=== PATIENT | female | born 1960 | race Caucasian/White ===

== ENCOUNTER 2017-03-12 08:21 | Day surgery (SDC) | payer OTHER ==
[~2017-03-12] VITALS: Ht 170.2 cm; Wt 89.4 kg
[~2017-03-12 08:21] MED LIST: ACHYD1T PO; EST45C VG; ESTR1TAB24 PO; IBP800T PO; KETO-22 PO
[2017-03-12] MEDS ORDERED: DEXL60CA (08:32)
[2017-03-12] MEDS ORDERED: NS IV 1000 ML 1,000 ML IV ONE (08:33)
[2017-03-12 08:55] LABS: BASOPHILS % (AUTO) 0 % (0-10); EOSINOPHILS % (AUTO) 0 % (0-10); LYMPHOCYTES # (AUTO) 1.2 X 10^3 (1.0-4.0); LYMPHOCYTES % (AUTO) 10 % (12-44); MEAN CORPUSCULAR HEMOGLOBIN 29 PG (25-34); MEAN CORPUSCULAR HGB CONC 33 G/DL (32-36); MEAN CORPUSCULAR VOLUME 90 FL (80-99); MEAN PLATELET VOLUME 10.3 FL (7.4-10.4); MONOCYTES # (AUTO) 0.7 X 10^3 (0.0-1.0); MONOCYTES % (AUTO) 6 % (0-12); NEUTROPHILS # (AUTO) 10.2 X 10^3 (1.8-7.8); NEUTROPHILS % (AUTO) 84 % (42-75); PLATELET COUNT 249 10^3/uL (130-400); RED BLOOD COUNT 4.52 10^6/uL (4.35-5.85); RED CELL DISTRIBUTION WIDTH 13.3 % (10.0-14.5); WHITE BLOOD COUNT 12.1 10^3/uL (4.3-11.0)
--- NOTE | 2017-03-12 09:06 | ED Abdominal Pain ---
General Chief Complaint: Abdominal/GI Problems Stated Complaint: APPENDIX PAIN Source of Information: Patient Exam Limitations: No Limitations History of Present Illness Time Seen By Provider: 08:42 Initial Comments Here with complaint of 2 days of central and lower abdominal pain that is now directed more towards the right lower quadrant. Admits to chills but did not check for fever. Denies dysuria but has had loose stools for a couple days now. Timing/Duration: 1-2 Days Severity/Quality: Moderate, Aching Location: Periumbilical Radiation: RLQ Activities at Onset: None Modifying Factors: Worsens With Movement Associated Symptoms: No Chest Pain, Fever/Chills, No Nausea/Vomiting, No Weakness Allergies and Home Medications Allergies Coded Allergies: No Known Drug Allergies (Unverified , 03/28/12) Home Medications Dexlansoprazole 60 Mg Cap., #30 (Reported) Estradiol 1 Mg Tablet, 1 MG PO DAILY, (Reported) Estrogens Conjugated 45 Gm Cr, 1 GM VG HS, (Reported) 1 APPLICATORFUL Ibuprofen 800 Mg Tab, 800 MG PO Q6H PRN, (Reported) Review of Systems Constitutional: see HPI, chills, No fever EENTM: No Symptoms Reported Respiratory: No Symptoms Reported Cardiovascular: No Symptoms Reported Gastrointestinal: See HPI, Abdominal Pain, Diarrhea, Denies Nausea, Denies Vomiting Genitourinary: No Symptoms Reported, Denies Frequency, Denies Pain Musculoskeletal: no symptoms reported Skin: no symptoms reported All Other Systems Reviewed Negative Unless Noted: Yes Past Skgzjog-Usfxux-Gtcofx Hx Patient Social History Alcohol Use: Denies Use Recreational Drug Use: No Smoking Status: Never a Smoker Recent Foreign Travel: No Contact w/Someone Who Travel: No Immunizations Up To Date Date of Influenza Vaccine: Sep 05, 2011 Surgeries HX Surgeries: Yes (BSO ) Surgeries: Hysterectomy, Orthopedic Respiratory Hx Respiratory Disorders: No Cardiovascular Hx Cardiac Disorders: No Neurological Hx Neurological Disorders: No Reproductive System Hx Reproductive Disorders: No Genitourinary Hx Genitourinary Disorders: Yes (INCONTINENCE) Gastrointestinal Hx Gastrointestinal Disorders: No Musculoskeletal Hx Musculoskeletal Disorders: Yes (LEFT HIP PROBLEMS) Endocrine Hx Endocrine Disorders: No HEENT HX ENT Disorders: No Psychosocial Hx Psychiatric Problems: No Blood Transfusions Hx Blood Disorders: No Reviewed Nursing Assessment Reviewed/Agree w Nursing PMH: Yes Family Medical History Significant Family History: No Pertinent Family Hx Physical Exam Vital Signs VS - Last 72 Hours, by Label 03/12/17 08:24 Temp 97.8 Pulse 77 Resp 18 B/P (MAP) 178/65 Pulse Ox 99 O2 Delivery Room Air Capillary Refill : General Appearance: WD/WN, no apparent distress HEENT: PERRL/EOMI, pharynx normal Neck: full range of motion, supple Respiratory: lungs clear, normal breath sounds Cardiovascular: regular rate, rhythm, no murmur Peripheral Pulses: 2+ Dorsalis Pedis (R), 2+ Left Dors-Pedis (L), 2+ Radial Pulses (R), 2+ Radial Pulses (L) Gastrointestinal: soft, No guarding, No rebound, tenderness (right lower quadrant until lesser extent suprapubic.) Extremities: non-tender, normal inspection Back: normal inspection, no CVA tenderness, no vertebral tenderness Neurologic/Psychiatric: alert, oriented x 3 Skin: normal color, warm/dry Progress/Results/Core Measures Results/Orders Lab Results Laboratory Tests Test 03/12/17 08:06 03/12/17 09:07 Range/Units White Blood Count 12.1 H 4.3-11.0 10^3/uL Red Blood Count 4.52 4.35-5.85 10^6/uL Hemoglobin 13.3 11.5-16.0 G/DL Hematocrit 41 35-52 % Mean Corpuscular Volume 90 80-99 FL Mean Corpuscular Hemoglobin 29 25-34 PG Mean Corpuscular Hemoglobin Concent 33 32-36 G/DL Red Cell Distribution Width 13.3 10.0-14.5 % Platelet Count 249 130-400 10^3/uL Mean Platelet Volume 10.3 7.4-10.4 FL Neutrophils (%) (Auto) 84 H 42-75 % Lymphocytes (%) (Auto) 10 L 12-44 % Monocytes (%) (Auto) 6 0-12 % Eosinophils (%) (Auto) 0 0-10 % Basophils (%) (Auto) 0 0-10 % Neutrophils # (Auto) 10.2 H 1.8-7.8 X 10^3 Lymphocytes # (Auto) 1.2 1.0-4.0 X 10^3 Monocytes # (Auto) 0.7 0.0-1.0 X 10^3 Eosinophils # (Auto) 0.0 0.0-0.3 10^3/uL Basophils # (Auto) 0.0 0.0-0.1 10^3/uL Sodium Level 139 135-145 MMOL/L Potassium Level 3.8 3.6-5.0 MMOL/L Chloride Level 104 98-107 MMOL/L Carbon Dioxide Level 23 21-32 MMOL/L Anion Gap 12 5-14 MMOL/L Blood Urea Nitrogen 9 7-18 MG/DL Creatinine 0.87 0.60-1.30 MG/DL Estimat Glomerular Filtration Rate > 60 BUN/Creatinine Ratio 10 Glucose Level 121 H 70-105 MG/DL Calcium Level 9.7 8.5-10.1 MG/DL Total Bilirubin 0.5 0.1-1.0 MG/DL Aspartate Amino Transf (AST/SGOT) 14 5-34 U/L Alanine Aminotransferase (ALT/SGPT) 15 0-55 U/L Alkaline Phosphatase 48 40-136 U/L Total Protein 6.9 6.4-8.2 G/DL Albumin 4.0 3.2-4.5 G/DL Urine Color YELLOW Urine Clarity CLEAR Urine pH 7 5-9 Urine Specific [place] 1.020 1.016-1.022 Urine Protein 2+ H NEGATIVE Urine Glucose (UA) NEGATIVE NEGATIVE Urine Ketones 1+ H NEGATIVE Urine Nitrite NEGATIVE NEGATIVE Urine Bilirubin NEGATIVE NEGATIVE Urine Urobilinogen NORMAL NORMAL MG/DL Urine Leukocyte Esterase 1+ H NEGATIVE Urine RBC (Auto) 1+ H NEGATIVE Urine RBC RARE /HPF Urine WBC RARE /HPF Urine Squamous Epithelial Cells RARE /HPF Urine Crystals NONE /LPF Urine Bacteria NEGATIVE /HPF Urine Casts NONE /LPF Urine Mucus SMALL H /LPF Urine Culture Indicated NO My Orders Orders - WILL TURNER MD Saline Lock/Iv-Start (03/12/17 08:33) Ns Iv 1000 Ml (Sodium Chloride 0.9%) (03/12/17 08:33) Cbc With Automated Diff (03/12/17 08:33) Comprehensive Metabolic Panel (03/12/17 08:33) Ua Culture If Indicated (03/12/17 08:33) Ct Abd/Pelv W (Appendicitis) (03/12/17 09:35) Iohexol Injection (Omnipaque 350 Mg/Ml 1 (03/12/17 09:45) Ns (Ivpb) (Sodium Chloride 0.9% Ivpb Bag (03/12/17 09:45) Fentanyl Injection (Sublimaze Injection (03/12/17 09:49) Medications Given in ED Current Medications Medications Dose Ordered Sig/Chad Route Start Time Stop Time Status Last Admin Dose Admin Iohexol 100 ml ONCE ONCE IV 03/12/17 09:45 03/12/17 09:46 DC 03/12/17 09:47 100 ML Sodium Chloride 100 ml ONCE ONCE IV 03/12/17 09:45 03/12/17 09:46 DC 03/12/17 09:48 80 ML Sodium Chloride 1,000 ml @ 0 mls/hr Q0M ONCE IV 03/12/17 08:33 03/12/17 08:36 DC 03/12/17 09:39 1,000 MLS/HR Vital Signs/I&O Vital Sign - Last 12Hours 03/12/17 08:24 Temp 97.8 Pulse 77 Resp 18 B/P (MAP) 178/65 Pulse Ox 99 O2 Delivery Room Air Progress Note : Progress Note Seen and evaluated. IV, labs, UA, normal saline 1 L bolus ordered. Patient declined pain medicine currently. CT abdomen and pelvis ordered. Fentanyl 50 g IV ordered for worsening pain after CT scan. 1042: Appendicitis noted. I did discuss the case with Dr. Pride. He'll take the patient to the OR. OR crew called. Findings and concerns discussed with the patient who agrees with plan. Diagnostic Imaging Diagonstic Imaging: CT Plain Films/CT/US/NM/MRI: abdomen, pelvis Comments NAME: SERA OCHOA [facility] REC#: [id number] PT STATUS: REG ER : 1960 PHYSICIAN: WILL TURNER MD ADMIT DATE: 03/12/17/ER Signed Date of Exam: 03/12/17 CT ABD/PELV W (APPENDICITIS) PROCEDURE: CT abdomen and pelvis with contrast, rule out appendicitis. TECHNIQUE: Multiple contiguous axial images were obtained through the abdomen and pelvis after the administration of intravenous contrast. INDICATION: Right lower quadrant pain Patient has bilateral breast implants. Lung bases are clear. Liver appears normal. Gallbladder is present. Common duct is not dilated. Portal vein is patent. Pancreas appears normal. Spleen is not enlarged. Kidneys and adrenals appear normal. Small bowel is not dilated. Colon is unremarkable. The appendix is distended. It measures 1 cm in diameter. There are some tiny phleboliths and air bubbles within the appendix. The appendiceal wall is not thickened. There is no surrounding induration. There is no intraperitoneal free air or free fluid. IMPRESSION: The appendix was distended and contains a small phleboliths but no definite evidence of acute appendicitis. Very early appendicitis cannot be excluded however. Dictated by: Dictated on workstation # [id number] Dict: 03/12/17 1006 Trans: 03/12/17 1015 Interpreted by: WILL COLEMAN Electronically signed by: WILL COLEMAN 03/12/17 1015 Reviewed: Reviewed by Me Departure Communication Time/Spoke to Admitting Phy: 10:42 Impression Impression: Primary Impression: Appendicitis Qualified Codes: K35.3 - Acute appendicitis with localized peritonitis Disposition: ADMITTED INPATIENT Condition: Stable Decision to Admit Reason: Admit from ER (General) Decision to Admit/Date: Mar 12, 2017 Time/Decision to Admit Time: 10:42 Departure-Patient Inst. Referrals: MARY LOU BARBOZA MD (PCP/Family) Primary Care Physician WILL TURNER MD Mar 12, 2017 09:06
[2017-03-12 09:14] LABS: BILIRUBIN,URINE NEGATIVE (NEGATIVE); KETONES,URINE 1+ (NEGATIVE); LEUKOCYTE ESTERASE ,URINE 1+ (NEGATIVE); NITRITE,URINE NEGATIVE (NEGATIVE); PH,URINE 7 (5-9); PROTEIN,URINE 2+ (NEGATIVE); UROBILINOGEN,URINE NORMAL (NORMAL)
[2017-03-12 09:15] LABS: ALANINE AMINOTRANSFERASE 15 U/L (0-55); ANION GAP 12 MMOL/L (5-14); ASPARTATE AMINO TRANSFERASE 14 U/L (5-34); BILIRUBIN,TOTAL 0.5 MG/DL (0.1-1.0); BLOOD UREA NITROGEN 9 MG/DL (7-18); BUN/CREATININE RATIO 10; CALCIUM 9.7 MG/DL (8.5-10.1); CARBON DIOXIDE 23 MMOL/L (21-32); CHLORIDE 104 MMOL/L (98-107); CREATININE SERUM 0.87 MG/DL (0.60-1.30); GFR ESTIMATED > 60; GLUCOSE 121 MG/DL (70-105); POTASSIUM 3.8 MMOL/L (3.6-5.0); SODIUM 139 MMOL/L (135-145); TOTAL PROTEIN 6.9 G/DL (6.4-8.2)
[2017-03-12 09:27] LABS: SQUAMOUS EPITHELIAL CELL,UR RARE /HPF; WBC,URINE RARE /HPF
[2017-03-12] MEDS ORDERED: IOHEXOL 350 MG/ML 100 ML (OMNIPAQUE 350) VIAL IV ONE (09:45)
[2017-03-12] MEDS ORDERED: NS 100 ML (IVPB) BAG IV ONE (09:45)
[2017-03-12] MEDS ORDERED: fentaNYL INJECTION 100 MCG/2 ML AMP IVP STA (09:49)
--- NOTE | 2017-03-12 10:15 | Diagnostic Imaging Report ---
PROCEDURE: CT abdomen and pelvis with contrast, rule out appendicitis. TECHNIQUE: Multiple contiguous axial images were obtained through the abdomen and pelvis after the administration of intravenous contrast. INDICATION: Right lower quadrant pain Patient has bilateral breast implants. Lung bases are clear. Liver appears normal. Gallbladder is present. Common duct is not dilated. Portal vein is patent. Pancreas appears normal. Spleen is not enlarged. Kidneys and adrenals appear normal. Small bowel is not dilated. Colon is unremarkable. The appendix is distended. It measures 1 cm in diameter. There are some tiny phleboliths and air bubbles within the appendix. The appendiceal wall is not thickened. There is no surrounding induration. There is no intraperitoneal free air or free fluid. IMPRESSION: The appendix was distended and contains a small phleboliths but no definite evidence of acute appendicitis. Very early appendicitis cannot be excluded however. Dictated by: Dictated on workstation # [id number]
[2017-03-12] MEDS ORDERED: metroNIDAZOLE 500MG/100ML IVPB IV ONE (11:15)
[2017-03-12] MEDS ORDERED: ceFAZolin 2 GM/50 ML NS 50 ML IV ONE (11:15)
--- NOTE | 2017-03-12 11:15 | History & Physical-Surgical ---
History of Present Illness History of Present Illness Reason for visit/HPI CC: RLQ abdominal pain Seen and evaluated in emergency dept. 57 year old female began having abdominal pain periumbilical which then migrated to the right lower quadrant. Pain moderate, no radiation. Has been going on about 48 hours. Patient maybe slight nausea no emesis. Denies fevers but felt chilled at time. She had a ct scan demonstrating dilated appendix and appendicolith. Nothing making symptoms better and movement or touching abdomen makes pain worse. Date of Admission I consulted on this patient on 03/12/17 11:10 Attending Physician Maura Pride DO Admitting Physician Dunia Duran MD Consult Allergies and Home Medications Allergies Coded Allergies: No Known Drug Allergies (Unverified , 03/28/12) Home Medications Dexlansoprazole 60 Mg Cap., #30 (Reported) Estradiol 1 Mg Tablet, 1 MG PO DAILY, (Reported) Estrogens Conjugated 45 Gm Cr, 1 GM VG HS, (Reported) 1 APPLICATORFUL Ibuprofen 800 Mg Tab, 800 MG PO Q6H PRN, (Reported) Past Kvzplqw-Yaysxy-Rwabxo Hx Patient Social History Alcohol Use: Denies Use Recreational Drug Use: No Smoking Status: Never a Smoker Recent Foreign Travel: No Contact w/Someone Who Travel: No Recent Infectious Disease Expo: No Immunizations Up To Date Date of Influenza Vaccine: Sep 05, 2011 Surgeries HX Surgeries: Yes (BSO ) Surgeries: Abdominal, Breast, Hysterectomy, Orthopedic Respiratory Hx Respiratory Disorders: No Cardiovascular Hx Cardiac Disorders: No Neurological Hx Neurological Disorders: No Reproductive System Hx Reproductive Disorders: No Genitourinary Hx Genitourinary Disorders: Yes (INCONTINENCE) Gastrointestinal Hx Gastrointestinal Disorders: No Musculoskeletal Hx Musculoskeletal Disorders: Yes (LEFT HIP PROBLEMS) Endocrine Hx Endocrine Disorders: No HEENT HX ENT Disorders: No Psychosocial Hx Psychiatric Problems: No Blood Transfusions Hx Blood Disorders: No Reviewed Nursing Assessment Reviewed/Agree w Nursing PMH: Yes Family Medical History Significant Family History: No Pertinent Family Hx Constitutional: see HPI EENTM: no symptoms reported Respiratory: no symptoms reported Cardiovascular: no symptoms reported Gastrointestinal: RLQ Genitourinary: no symptoms reported Musculoskeletal: no symptoms reported Skin: no symptoms reported Psychiatric/Neurological: No Symptoms Reported All Other Systems Reviewed Negative Unless Noted: Yes (Negative excepted noted.) Physical Exam Vital Signs Vital Sign - Last 12Hours 03/12/17 08:24 Temp 97.8 Pulse 77 Resp 18 B/P (MAP) 178/65 Pulse Ox 99 O2 Delivery Room Air Capillary Refill : Less Than 3 Seconds General Appearance: No Apparent Distress (laying in bed) HEENT: PERRL/EOMI, Pharynx Normal Neck: Supple Respiratory: No Accessory Muscle Use, No Respiratory Distress Cardiovascular: Regular Rate, Rhythm Gastrointestinal: Soft, No Distended, No Guarding, Tenderness (right lower quadrant) Rectal: Deferred Back: Normal Inspection Extremity: Normal Inspection Neurologic/Psychiatric: Alert, Oriented x3, Normal Mood/Affect Skin: Warm/Dry Data Review Labs Laboratory Tests 03/12/17 08:06: White Blood Count 12.1H, Red Blood Count 4.52, Hemoglobin 13.3, Hematocrit 41, Mean Corpuscular Volume 90, Mean Corpuscular Hemoglobin 29, Mean Corpuscular Hemoglobin Concent 33, Red Cell Distribution Width 13.3, Platelet Count 249, Mean Platelet Volume 10.3, Neutrophils (%) (Auto) 84H, Lymphocytes (%) (Auto) 10L, Monocytes (%) (Auto) 6, Eosinophils (%) (Auto) 0, Basophils (%) (Auto) 0, Neutrophils # (Auto) 10.2H, Lymphocytes # (Auto) 1.2, Monocytes # (Auto) 0.7, Eosinophils # (Auto) 0.0, Basophils # (Auto) 0.0, Sodium Level 139, Potassium Level 3.8, Chloride Level 104, Carbon Dioxide Level 23, Anion Gap 12, Blood Urea Nitrogen 9, Creatinine 0.87, Estimat Glomerular Filtration Rate > 60, BUN/ Creatinine Ratio 10, Glucose Level 121H, Calcium Level 9.7, Total Bilirubin 0.5 , Aspartate Amino Transf (AST/SGOT) 14, Alanine Aminotransferase (ALT/SGPT) 15, Alkaline Phosphatase 48, Total Protein 6.9, Albumin 4.0 03/12/17 09:07: Urine Color YELLOW, Urine Clarity CLEAR, Urine pH 7, Urine Specific [place] 1.020, Urine Protein 2+H, Urine Glucose (UA) NEGATIVE, Urine Ketones 1+H, Urine Nitrite NEGATIVE, Urine Bilirubin NEGATIVE, Urine Urobilinogen NORMAL, Urine Leukocyte Esterase 1+H, Urine RBC (Auto) 1+H, Urine RBC RARE, Urine WBC RARE, Urine Squamous Epithelial Cells RARE, Urine Crystals NONE, Urine Bacteria NEGATIVE, Urine Casts NONE, Urine Mucus SMALLH, Urine Culture Indicated NO Assessment/Plan Assessment/Plan Assessment/Plan right lower quadrant abdominal pain, appendicitis discussed ct scan findings and risks and benefits of laparoscopic appendectomy all other indicated procedures she and family understand and wish to proceed. patient to OR ancef/flagyl preop scd's iv fluids MAURA PRIDE DO Mar 12, 2017 11:15
[2017-03-12] MEDS ORDERED: proPOfol 200 MG/20 ML (DIPRIVAN) VIAL IV ONE (11:16)
[2017-03-12] MEDS ORDERED: LIDOCAINE PF 2% 10 ML (XYLOCAINE) AMP ONE (11:16)
[2017-03-12] MEDS ORDERED: SEVOFLURANE (ULTANE) 15 ML INHAL SOLN ONE ×4 (11:16→12:35)
[2017-03-12] MEDS ORDERED: fentaNYL INJECTION 100 MCG/2 ML AMP ONE ×2 (11:17→13:04)
[2017-03-12] MEDS ORDERED: BUPIVACAINE 0.5% 30 ML (SENSORCAINE) VIAL ONE (11:17)
[2017-03-12] MEDS ORDERED: LIDOCAINE 1% INJ 20 ML (XYLOCAINE) VIAL ONE (11:17)
[2017-03-12] MEDS ORDERED: MIDAZOLAM 2 MG/2 ML (VERSED) VIAL ONE (11:17)
[2017-03-12] MEDS ORDERED: SCOPOLAMINE 1.5 MG (TRANSDERM-SCOP) PATCH ONE (11:41)
[2017-03-12] MEDS: LACTATED RINGERS 1,000 ML IV SCH ×2 (11:42→13:19)
[2017-03-12] MEDS ORDERED: ceFAZolin 1,000 MG (ANCEF) VIAL ONE (11:56)
[2017-03-12] MEDS ORDERED: LACTATED RINGERS 2,000 ML IV ONE (12:35)
[2017-03-12] MEDS ORDERED: metroNIDAZOLE 500MG/100ML IVPB 100 ML ONE (12:38)
[2017-03-12] MEDS ORDERED: DEXAMETHASONE PF 10 MG/ML (DECADRON) VIAL ONE (12:38)
[2017-03-12] MEDS ORDERED: ONDANSETRON 4 MG/2 ML (SDV) Z0FRAN ONE ×2 (12:38→13:05)
[2017-03-12] MEDS ORDERED: NEOSTIGMINE (BLOXIVERZ ) 1 MG/1ML 10 ML VIAL ONE (12:39)
[2017-03-12] MEDS ORDERED: GLYCOPYRROLATE 0.2 MG/ML (ROBINUL) 2 ML VIAL ONE (12:39)
[2017-03-12] MEDS ORDERED: KETOROLAC 30 MG/ML VIAL ONE (12:39)
--- NOTE | 2017-03-12 12:57 | Progress Note-Post Operative ---
Post-Operative Progess Note Surgeon (s)/Mercerizer (s) Surgeon MAURA ESQUEDA DO Mercerizer: 0 Pre-Operative Diagnosis appendicitis Post-Operative Diagnosis same Post-Op Procedure Note Date of Procedure: Mar 12, 2017 Name of Procedure Performed: laparoscopic appendectomy Description of the Procedure: see note Findings of the Procedure see note Anesthesia Type general Estimated blood loss (mL): minimal Specimen(s) collected/removed appendix MAURA ESQUEDA DO Mar 12, 2017 12:57
[2017-03-12] MEDS ORDERED: HYDR-3812 PO (12:58)
[2017-03-12] MEDS ORDERED: DOCU-143 PO (12:58)
--- NOTE | 2017-03-12 13:01 | Discharge Inst-Simple/Standard ---
Discharge Inst-Standard Discharge Medications New, Converted or Re-Newed RX: RX on Chart Patient Instructions/Follow Up Plan of Care/Instructions/FU: 2 weeks Shannen Activity as Tolerated: No Discharge Diet: Liquid Diet (advance diet as tolerates) Other Inst to Patient Follow up Appt: Make appointment for 2 week. Instructions: No lifting greater than 10 pounds. No strenuous activity. May shower in 24 hours, no tub bath or soaking. Use incentive spirometer at home as directed. No Smoking Skin/Wound Care: May remove bandages in 24 hours. You need to leave the white strips over incision on they will fall off on their own. Symptoms to Report: Appetite Changes, Extremity Discoloration, Numbness/Tingling, Swelling Increased , Bleeding Excessive, Eyesight Changes, Pain Increased, Urine Color Change, Constipation(Persistent), Fever over 101 degree F, Pain/Pressure in chest, Urinating Difficulty, Cough Up/Vomit Blood, Heart Beat Irreg/Pounding, Pain/ Pressure in jaw, Vaginal Bleeding Increase, Cramps in feet or legs, Lightheadedness, Pain/Pressure in shoulder, Diarrhea(Persistent), Memory Changes Suddenly, Questions/Concerns, Weight gain consecutive days, Dizziness/ Fainting, Nausea/Vomiting, Shortness of Breath, Weight gain over 2 pounds If questions or concerns contact your physician Or seek help at emergency department. MAURA ESQUEDA DO Mar 12, 2017 13:01
[2017-03-12] MEDS ORDERED: morphine INJ 10 MG/ML 1ML (SYR OR VIAL) ONE (13:04)
[2017-03-12] MEDS ORDERED: LACTATED RINGERS 1,000 ML IV PRN (13:06)
[2017-03-12] MEDS ORDERED: fentaNYL INJECTION 100 MCG/2 ML AMP IVP PRN (13:15)
[2017-03-12] MEDS ORDERED: morphine INJ 10 MG/ML 1ML (SYR OR VIAL) IVP PRN (13:15)
[2017-03-12] MEDS ORDERED: MEPERIDINE (DEMEROL) INJ 50 MG/ML IVP PRN (13:15)
[2017-03-12] MEDS: HYDROcodone/APAP 5 MG/325 MG (LORTAB) TAB PO PRN ×2 (14:25→19:00)
[2017-03-12 19:20] VITALS: BP 140/80
--- NOTE | 2017-03-12 23:28 | OPERATIVE REPORT ---
DATE OF SERVICE: 03/12/2017 PREOPERATIVE DIAGNOSIS: Appendicitis. POSTOPERATIVE DIAGNOSIS: Appendicitis. PROCEDURE PERFORMED: Laparoscopic appendectomy. SURGEON: MAURA ESQUEDA DO ANESTHESIA: General. ESTIMATED BLOOD LOSS: Minimal. COMPLICATIONS: None. INDICATION: The patient is an 87-year-old female who presented with abdominal pain which began at the periumbilical region then moved to the right lower quadrant. She had a CT scan suggestive of an early appendicitis. She understands the risks and benefits of the procedure and wished to proceed with procedure. Consent was signed and on the chart. DESCRIPTION OF PROCEDURE: The patient was taken to the operating suite, she was prepped and draped in a sterile fashion. Surgical pause was performed. A 5 mm incision was made in the umbilicus. The Kochar was used to dissect down. The fascia grasped and elevated. A Veress needle was inserted. It was difficult to get into the abdomen at the umbilicus, therefore a stab incision was made in the left upper quadrant. A Veress needle was inserted and pneumoperitoneum was achieved. Under direct visualization of laparoscope, 5 mm trocar was then placed in the left upper quadrant. On direct visualization of the laparoscope, a 5 mm trocar was placed in the suprapubic region and a 12 mm trocar was placed in the left lower quadrant. The appendix was dilated and erythematous and inflamed. It was grasped and elevated. A [place] was used to dissect around the appendix near the base of the appendix. An EdoGIA 2.5 stapler was then fired at the very base of the appendix taken a small portion of the cecum. EndoGIA 2.0 reload was then used to fire across the mesoappendix. Staple lines were intact. The appendix was placed in an Endobag and removed to a 12 mm trocar site. Abdomen was irrigated and suctioned. The 12 mm fascial defect was then closed using 0 Vicryl with an Endoclose. The abdomen was then desufflated. Trocars were removed, 20 mL of 0.5% Marcaine, 1% lidocaine and 50/50 ratio was used to anesthetize trocar sites. Skin was then closed using 4-0 Vicryl in a subcuticular fashion. The abdomen was then washed and dried. Mastisol and Steri-Strips were applied. Sterile bandages were applied. The patient tolerated the procedure well without any complications. She was taken to the recovery room in stable condition. Job ID: [id number] DocumentID: [id number] Dictated Date: 03/12/2017 12:50:26 Draw Fire Operator Date: 03/12/2017 19:06:46 Dictated By: DO HESHAM RAHMAN
== END 2017-03-12 19:20 | disposition home or self-care (01) ==
LOC: EDUNIT# 08:21 → ER 08:23 → SDC 11:05
PROVIDERS: ATTEND Surgery
DX: K35.80 Unspecified acute appendicitis (principal)
CPT/HCPCS: 36415; 74177; 80053; 81000; 85025; 88304; 94664; 96361; 96374

== ENCOUNTER → 2017-11-08 | Outpatient (CLI) | payer OTHER ==
[~2017-11-08] MED LIST changes: +DEXL60CA; +DOCU-143 PO; +HYDR-3812 PO
--- NOTE | 2017-11-08 17:15 | Diagnostic Imaging Report ---
EXAM: Bilateral screening mammogram 2D views with tomosynthesis The current study was also evaluated with a Computer Aided Detection (CAD) system. INDICATION: Screening. No current complaints stated on the questionnaire. COMPARISON: 08/08/2006. FINDINGS: The breasts are composed of heterogeneously dense parenchyma which may decrease mammographic sensitivity. There are implants seen at this time not present on prior exams. The implants are symmetric. No mass, architectural distortion or suspicious cluster of calcification. IMPRESSION: No mammographic evidence of malignancy. Annual screening mammograms recommended. BI-RADS 2. ACR BI-RADS Category 2: Benign findings. Result letter will be mailed to the patient. Note: At least 10% of breast cancer is not imaged by mammography. Dictated by: Dictated on workstation # [id number]
== END ==
LOC: RAD 10-19 08:46
PROVIDERS: ATTEND Obstetrics & Gynecology
DX: Z12.31 Encounter for screening mammogram for malignant neoplasm of breast (principal)
CPT/HCPCS: 77067

== ENCOUNTER → 2019-11-07 | Outpatient (CLI) | payer BC, OTHER ==
[~2019-11-07] MED LIST changes: +ACHD5005 PO; -HYDR-3812 PO
--- NOTE | 2019-11-07 11:59 | Diagnostic Imaging Report ---
INDICATION: Routine screening. COMPARISON: Comparison is made with prior mammogram from 11/08/2017. TECHNIQUE: 2-D and 3-D bilateral screening mammography was performed. The current study was also evaluated with a Computer Aided Detection (CAD) system. 3-D tomosynthesis was also performed and reviewed. FINDINGS: Bilateral breast implants are again noted. Implant contours remain smooth. Both breasts remain heterogeneously dense, limiting the sensitivity of mammography. The overall parenchymal pattern appears to be stable. No dominant mass or malignant-appearing microcalcifications are seen. There are benign calcifications. Axillae are unremarkable. IMPRESSION: No mammographic features suspicious for malignancy are identified. ACR BI-RADS Category 2: Benign findings. Result letter will be mailed to the patient. Note: At least 10% of breast cancer is not imaged by mammography. Dictated by: Dictated on workstation # [id number]
== END ==
LOC: RAD 10:55
PROVIDERS: ATTEND Obstetrics & Gynecology
DX: Z12.31 Encounter for screening mammogram for malignant neoplasm of breast (principal)
CPT/HCPCS: 77067